=== PATIENT | female | born 1985 | race Caucasian/White ===

== ENCOUNTER 2019-02-05 20:41 | Emergency (ER) | payer MEDICAID ==
[~2019-02-05] VITALS: Ht 165.1 cm; Wt 55.0 kg
[2019-02-05 21:00] VITALS: BP 137/88
== END 2019-02-06 00:37 | disposition left against medical advice (07) ==
LOC: ER 20:41
DX: R07.89 Other chest pain (principal); Z53.21 Procedure and treatment not carried out due to patient leaving prior to being seen by health care provider
CPT/HCPCS: 93005